=== PATIENT | male | born 1955 ===

== ENCOUNTER 2016-11-21 11:49 | Emergency (ER) | payer MEDICAID ==
[2016-11-21 11:49] VITALS: BMI 27.0
[2016-11-21 12:00] VITALS: BP 148/98; PULSE 67; RESP 18; TEMP 97.6; O2SAT 99
== END 2016-11-21 11:59 | disposition left against medical advice (07) ==
LOC: H.ER 11:49
DX: Z02.89 Encounter for other administrative examinations (principal)